=== PATIENT | male | born 1975 | race Caucasian/White ===

== ENCOUNTER 2025-05-06 19:18 | Emergency (ER) | payer SELFPAY ==
[~2025-05-06] VITALS: Ht 170.2 cm; Wt 76.4 kg
[2025-05-06 19:25] VITALS: TEMP 98.6
[2025-05-06 20:02] LABS: PLATELET COUNT (AUTO) 301 K/uL (150-450); RED BLOOD CELL COUNT(AUTO) 5.00 MIL/uL (4.50-5.90); RED CELL DISTRIBUTION WIDTH 12.9 % (11.5-14.5); WHITE BLOOD COUNT (AUTO) 10.4 K/uL (4.5-11.0)
[2025-05-06 20:14] LABS: CALCIUM, TOTAL 9.3 mg/dL (8.8-10.5); CREATININE 0.87 mg/dL (0.60-1.30); GLOMERULAR FILTR. RATE CALC > 60 mL/min (>60); GLUCOSE,RANDOM 92 mg/dL (70-110); SODIUM SERUM 136 mmol/L (136-145); UREA NITROGEN, BLOOD 19 mg/dL (7-18)
[2025-05-06 20:19] LABS: TROPONIN I-HIGH SENSITIVITY 4 ng/L (<76)
[2025-05-06 22:31] VITALS: BP 134/76; PULSE 86; RESP 14; O2SAT 98
[2025-05-06] MEDS ORDERED: LIDO-57 TP (22:35)
== END 2025-05-06 22:44 | disposition home or self-care (01) ==
LOC: EDSEX 19:18 → EMS 19:18
DX: S20.211A Contusion of right front wall of thorax, initial encounter (principal); F12.90 Cannabis use, unspecified, uncomplicated; W19.XXXA Unspecified fall, initial encounter; Y93.89 Activity, other specified; Y92.89 Other specified places as the place of occurrence of the external cause; Y99.8 Other external cause status
CPT/HCPCS: 71045; 80048; 84484; 85025; 93005; 99285; 36415-L1; 36415-TC